=== PATIENT | female | born 1965 | race Caucasian/White ===

== ENCOUNTER 2025-01-21 12:50 | Outpatient (CLI) | payer BC, SELFPAY ==
--- NOTE | 2025-01-21 13:00 | US_ITS ---
PROCEDURE: US TRANSVAGINAL CLINICAL INDICATION: needs 01/24 for f/u uterine fibroid COMPARISON: No exams were available for comparison FINDINGS: Transvaginal sonographic images of the pelvis were obtained. UTERUS: 5.9 cm x 5.2cmx 2.6 cm retroflexed with a combined endometrial thickness of 7.9mm. There appears to be a small fibroid within the endometrium that measures 0.8 cm x 0.6 cm Fibroid 1. Fundal fibroid measuring 2.8 cm x 2.7 cm x 2.8 cm. It appears to be calcified with posterior shadowing Fibroid 2. 1.6 cm x 0.9 cm x 1.4 cm Fibroid 3. 1.6 cm x 1.2 cm x 1.4 cm. Fibroid 4. Posterior 1.7 cm x 2.5 cm x 2.9 cm Fibroid 5. 1.6 cm x 1.2 cm x 1.7 cm LEFT OVARY: 1.3cmx0.9 cmx1.1cm with a volume of 0.6ml. The left ovary appears atrophic. RIGHT OVARY: 4.9 cmx 2.2cmx3.3cm with a volume of 18.1ml. The right ovary contains a septated cyst measuring 4.0 cm x 2.4 cm x 2.3 The septation appears quite thick but there is no flow. Both ovaries are seen . Doppler flow to both ovaries are seen. There is no fluid in the cul-de-sac. IMPRESSION: 1. Retroflexed uterus containing multiple fibroids. There are at least 6 fibroids within the uterus. 2. The endometrium is thickened for a postmenopausal woman and measures 7.9 mm. Within the endometrium there appears to be an 8 mm fibroid. 3. The left ovary is seen and appears atrophic. 4. The right ovary is enlarged with a septated cyst measuring 4 cm in size. The septation is thickened but there is no flow. 5. No fluid in the cul-de-sac. Dictated by: Kodi West MD 01/22/2025 07:42 Kodi West MD in [facility] 01/22/2025 07:42
== END 2025-01-21 23:59 | disposition home or self-care (01) ==
PROVIDERS: PCP Nurse Practitioner Family; Visit Provider Obstetrics & Gynecology
DX: D25.9 Leiomyoma of uterus, unspecified (principal); N85.4 Malposition of uterus; N83.8 Other noninflammatory disorders of ovary, fallopian tube and broad ligament; N83.291 Other ovarian cyst, right side; Z78.0 Asymptomatic menopausal state
CPT/HCPCS: 76830